=== PATIENT | female | born 1950 | race Hispanic/Latino ===

== ENCOUNTER → 2019-05-10 | Outpatient (CLI) | payer MEDICARE ==
[~2019-05-10] MED LIST: ALENDRONATE SOD70 MG PO; AMLODIPINE BESY10 MG PO; CRESTOR10 MG PO; GLIMEPIRIDE2 MG PO; LISINOPRIL-HCT1 EACH PO; METFORMIN HCL500 MG PO; VITAMIN D350000 UNIT PO
[2019-05-10 13:36] LABS: BASOPHILS # (AUTO) 0.1 (0.0-0.1); BASOPHILS % 0.6 % (0.0-1.0); EOSINOPHILS # (AUTO) 0.1 (0.0-0.4); EOSINOPHILS % 1.5 % (0.0-6.0); HEMATOCRIT 34.1 % (34.2-44.1); HEMOGLOBIN 11.2 g/dL (12.0-16.0); LYMPHOCYTES # (AUTO) 1.8 (1.0-3.2); LYMPHOCYTES % 22.1 % (18.0-39.1); MEAN CORPUSCULAR HEMOGLOBIN 26.9 pg (28-32); MEAN CORPUSCULAR HGB CONC 32.8 g/dL (31-35); MONOCYTES # (AUTO) 0.5 (0.2-0.8); MONOCYTES % 5.7 % (4.4-11.3); NEUTROPHILS # (AUTO) 5.5 (2.1-6.9); NEUTROPHILS % 69.8 % (38.7-80.0); PLATELET COUNT 281 x10e3/uL (140-360); RED BLOOD COUNT 4.16 x10e6/uL (3.6-5.1); RED CELL DISTRIBUTION WIDTH 12.6 % (11.7-14.4)
== END ==
LOC: RAD 05:00 → OR 05-13 08:49 → EDSTATUS 05-13 11:30
PROVIDERS: ATTEND Internal Medicine
DX: K92.1 Melena (principal); K21.9 Gastro-esophageal reflux disease without esophagitis; I10 Essential (primary) hypertension; Z53.09 Procedure and treatment not carried out because of other contraindication
CPT/HCPCS: 36415; 85025; 93005

== ENCOUNTER 2021-07-09 05:59 | Observation (INO) | payer MEDICARE ==
[~2021-07-09] VITALS: Ht 147.3 cm; Wt 80.7 kg
[~2021-07-09 05:59] MED LIST changes: +ACTOS15 MG PO; +SODIUM CHLORIDE 0.9% 500ML 500 ML ONE; +TRANEXAMIC ACID 1,000 MG/10 ML ML ONE; +Vancomycin IV 1,000 MG ONE
[2021-07-09] MEDS ORDERED: DEXAMETHASONE SOD PHOS 10 MG/1 ML VIAL ONE (06:13)
[2021-07-09] MEDS ORDERED: CELECOXIB 200 MG CAP ONE (06:13)
[2021-07-09] MEDS ORDERED: SODIUM CHLORIDE 0.9% 50ML 100 ML ONE (06:14)
[2021-07-09] MEDS ORDERED: GABAPENTIN 300 MG CAP ONE (06:14)
[2021-07-09] MEDS ORDERED: ROPIVACAINE 246.25 MG, EPINEPHRINE HCL 1:1000 1ML 0.5 MG, CLONIDINE HCL 0.08 MG, KETORO... INJ ONE ×5 (06:30)
[2021-07-09] MEDS ORDERED: DOCUSATE SODIUM 100 MG CAP PO PRN (08:00)
[2021-07-09] MEDS ORDERED: HYDROCODONE/APAP 7.5MG-325MG 1 EA TAB PO PRN (08:00)
[2021-07-09] MEDS ORDERED: HYDROCODONE/APAP 5MG-325MG TAB PO PRN (08:00)
[2021-07-09] MEDS ORDERED: SODIUM CHLORIDE 0.9% 1000ML 1,000 ML IV SCH (08:00)
[2021-07-09] MEDS ORDERED: KETOROLAC TROMETHAMINE 30 MG/ML VIAL IV PRN (08:00)
[2021-07-09] MEDS ORDERED: DIPHENHYDRAMINE HCL INJ 50 MG/ML VIAL IV PRN (08:00)
[2021-07-09] MEDS ORDERED: ACETAMINOPHEN 650 MG SUPP PR PRN (08:00)
[2021-07-09] MEDS ORDERED: HYDROMORPHONE 1MG/1ML INJ ONE (08:34)
[2021-07-09] MEDS ORDERED: ASPIRIN 325 MG TAB PO SCH (09:00)
[2021-07-09] MEDS ORDERED: CELECOXIB 100 MG CAP PO SCH (09:00)
[2021-07-09] MEDS ORDERED: METFORMIN HCL 500 MG TAB PO SCH (09:15)
[2021-07-09] MEDS ORDERED: PIOGLITAZONE HCL 15 MG TAB PO SCH (09:15)
[2021-07-09 09:20] VITALS: BP 114/54
[2021-07-09 09:54] VITALS: BP 114/54
[2021-07-09 10:04] VITALS: BP 114/54
[2021-07-09] MEDS ORDERED: AMLODIPINE BESYLATE 10 MG TAB PO SCH (11:00)
[2021-07-09] MEDS ORDERED: GLIMEPIRIDE 2 MG TAB PO SCH (11:30)
[2021-07-09] MEDS ORDERED: INSULIN REGULAR, HUMAN 100 UNIT/1 ML SQ SCH (11:30)
[2021-07-09] MEDS ORDERED: DEXTROSE 50% SYRINGE 50 ML IV PRN (11:30)
[2021-07-09 11:47] VITALS: BP 112/56
[2021-07-09] MEDS ORDERED: ACETAMINOPHEN 1000 MG/100 ML IV PRN (12:00)
[2021-07-09] MEDS ORDERED: HYDROCHLOROTHIAZIDE 25 MG TAB PO SCH (12:00)
[2021-07-09] MEDS ORDERED: LISINOPRIL 20 MG TAB PO SCH (12:00)
[2021-07-09] MEDS: ONDANSETRON HCL INJ 2MG/ML 2ML 2 MG/ML VIAL IV PRN ×2 (12:01→16:18)
[2021-07-09] MEDS ORDERED: Cefazolin 1 GM in SODIUM CHLORIDE 0.9% 50ML 50 ML IV SCH (14:00)
[2021-07-09 15:31] VITALS: BP 101/59
[2021-07-09] MEDS ORDERED: ZOLPIDEM TARTRATE 5 MG TAB PO PRN (21:00)
[2021-07-09] MEDS ORDERED: SIMVASTATIN 20 MG TAB PO SCH (21:00)
[2021-07-14] MEDS ORDERED: ALENDRONATE SODIUM 70 MG TAB PO SCH (07:30)
== END 2021-07-09 16:20 | disposition home or self-care (01) ==
LOC: OR 05:59 → PACU V 08:55 → MED/SURG 09:12
PROVIDERS: ADMIT Specialist; ATTEND Specialist
DX: M17.12 Unilateral primary osteoarthritis, left knee (principal); E11.9 Type 2 diabetes mellitus without complications; I10 Essential (primary) hypertension; M81.0 Age-related osteoporosis without current pathological fracture; E78.5 Hyperlipidemia, unspecified; K21.9 Gastro-esophageal reflux disease without esophagitis; D64.9 Anemia, unspecified; Z01.812 Encounter for preprocedural laboratory examination; Z01.818 Encounter for other preprocedural examination; Z20.822 Contact with and (suspected) exposure to COVID-19; Z79.84 Long term (current) use of oral hypoglycemic drugs
CPT/HCPCS: 27447; 36415; 71046; 73560; 82948; 86850; 86870; 86880; 86900; 86905; 86920; 86922; 97110; 97116; 97139; 97161; 97530; 99001; C1713 ×3; C1776; G0378; J0171; J0690; J1100; J1170; J1817; J1885; J2405; J2795; J3370; J7030; J7040; U0002